=== PATIENT | female | born 1960 | race Caucasian/White ===

== ENCOUNTER 2017-10-09 14:47 | Emergency (ER) | payer SELFPAY ==
[~2017-10-09] VITALS: Ht 172.7 cm; Wt 69.0 kg
[~2017-10-09 14:47] MED LIST: Bactrim Ds Tab1 EACH PO; CRUTCH4 USE; HYDACE5 PO; IBUP400 PO; Keflex500 MG PO; Multiple Vitam1 EAC1 PO
[2017-10-09 16:32] LABS: BASOPHILS ABSOLUTE AUTO 0.09 K/mm3 (0.00-0.23); BASOPHILS PERCENT AUTO 3 % (0-2); EOSINOPHILS ABSOLUTE AUTO 0.06 K/mm3 (0.00-0.68); EOSINOPHILS PERCENT AUTO 2 % (0-6); Hematocrit 25.2 % (33.0-51.0); IMMATURE GRAN ABSOLUTE AUTO 0.02 K/mm3 (0.00-0.10); IMMATURE GRAN PERCENT AUTO 1 % (0-1); LYMPHOCYTES ABSOLUTE AUTO 1.16 K/mm3 (0.84-5.20); LYMPHOCYTES PERCENT AUTO 34 % (21-46); MONOCYTES ABSOLUTE AUTO 0.44 K/mm3 (0.16-1.47); MONOCYTES PERCENT AUTO 13 % (4-13); Mean Corpuscular HGB 28.6 pg (26.0-34.0); Mean Corpuscular HGB Conc 31.7 g/dL (31.5-36.5); Mean Corpuscular Volume 90 fL (80-100); Mean Platelet Volume 9.6 fL (9.1-12.4); NEUTROPHILS ABSOLUTE AUTO 1.69 K/mm3 (1.96-9.15); NEUTROPHILS PERCENT AUTO 49 % (41-73); Platelet Count 104 K/mm3 (150-400); RDW Coefficient Variation 18.6 % (11.7-14.2); RDW Standard Deviation 62.3 fL (35.1-46.3); White Blood Cell Count 3.46 K/mm3 (4.00-11.30)
[2017-10-09 16:51] LABS: Alanine Aminotransfer (ALT/SGP 41 U/L (12-78); Albumin, Blood 2.5 g/dL (3.4-5.0); Albumin/Globulin Ratio 0.6 (0.8-1.8); Alk Phos 167 U/L (50-136); Anion Gap 7 mmol/L (6-16); Aspartate Aminotrans (AST/SGOT 122 U/L (12-37); Bilirubin, Total 1.3 mg/dL (0.1-1.0); Blood Urea Nitrogen 4 mg/dL (8-24); Bun/Creatinine Ratio 9.1 (12.0-20.0); CO2, Blood 27 mmol/L (21-32); Calcium, Blood 7.7 mg/dL (8.5-10.1); Chloride, Blood 110 mmol/L (98-108); Creatinine, Blood 0.44 mg/dL (0.40-1.00); Ethanol (Alcohol), Blood, Med 157 mg/dL; Globulin, Blood 4.2 g/dL (2.2-4.0); Glomerular Filtration Rate >60 (60-); Glucose, Blood 136 mg/dL (70-99); Magnesium, Blood 1.7 mg/dL (1.6-2.4); Potassium, Blood 3.7 mmol/L (3.5-5.5); Sodium, Blood 144 mmol/L (136-145); Total Protein, Blood 6.7 g/dL (6.4-8.2); Troponin I <0.015 ng/mL (0.000-0.040)
== END 2017-10-09 17:00 | disposition short-term general hospital (02) ==
LOC: ER 14:47
PROVIDERS: Emergency Medicine
DX: S12.110A Anterior displaced Type II dens fracture, initial encounter for closed fracture (principal); S80.12XA Contusion of left lower leg, initial encounter; Z88.8 Allergy status to other drugs, medicaments and biological substances; Z88.5 Allergy status to narcotic agent; Z87.891 Personal history of nicotine dependence; W10.9XXA Fall (on) (from) unspecified stairs and steps, initial encounter
CPT/HCPCS: 36415; 71045; 80053; 81000; 83690; 83735; 84484; 85025; 93005; 93010; 96365; 96375; 99285-25; G0480; J2405; J3010; J3411; J3475; J7042; L0160

== ENCOUNTER → 2019-04-23 | Outpatient (CLI) | payer SELFPAY | LOC: LAB SHORT 10:30 → LAB EV 10:30 | DX: L02.415 Cutaneous abscess of right lower limb (principal) | CPT/HCPCS: 87070; 87075; 87205 ==